=== PATIENT | male | born 1985 | race Caucasian/White ===

== ENCOUNTER 2023-06-30 08:27 | Outpatient (CLI) | payer OTHER, SELFPAY ==
--- NOTE | 2023-07-14 10:07 | WPDHOMESLEEP ---
Sleep Study - Home Unattended Date of Study: 06/30/23 Ordering Provider: Omer Mcgarry APRN Interpreting Provider: Radha Yadav MD Home Sleep Study Type: Watch PAT Height: 1.83 m Weight: 86.183 kg Body Mass Index: 25.7 Neck Circumference (inches): 15 [place]: 7 Reason for Sleep Study Snoring, fatigue Sleep History Kevin Lieberman is a 37-year-old man with hypertension and seasonal allergies. He has loud snoring, restless sleep with tossing and turning, and fatigue. There is a family history of sleep diagnoses, his father took sleep medication and both uncles use CPAP. He rarely awakens from sleep feeling short of breath. He rarely wakes at night with heartburn, belching or coughing.??He constantly snores, constantly snores loudly enough that others complain. He frequently has trouble sleeping when he has a cold. He rarely wakes up gasping for breath during the night. He frequently has breathing problems at night. He frequently sweats excessively at night. He rarely notices his heart pounding or beating irregularly during the night. He rarely falls asleep during the day. He rarely falls asleep involuntarily, never falls asleep while driving. He never experiences loss of muscle tone with strong emotion. 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 He never feels paralyzed on waking or falling asleep. He occasionally experiences vivid dreams upon waking or falling asleep. He never feels afraid of going to sleep. He rarely has nightmares. He rarely recalls his dreams. He occasionally has thoughts racing through his mind. He rarely feels sad or depressed. He occasionally feels anxiety. He occasionally notices parts of his body jerk. He frequently kicks during the night. He frequently feels crawling or aching feelings in his legs. He occasionally feels leg pain at night. He rarely has morning jaw pain, rarely grinds his teeth at night. He rarely feels bothered by pain during the day, rarely awakened by pain during the night. He occasionally wakes up feeling stiff in the morning, and he occasionally wakes feeling sore or achy. He occasionally awakens with pain in his neck, spine, or joints. Normal bedtime is9:30 p.m, falling asleep within 10 to 30 minutes, waking 3-5 times at night. When he wakes at night, he changes positions and gets a drink of water. His mouth is always parched at night from snoring. 5:30 a.m. on weekdays. On weekends, he goes to bed at 11:00 p.m., wakes at 7:00 a.m. He typically gets between 6 to 7 and a half hours of sleep at night. He does not take naps in the day, and a short nap is not refreshing. He is drowsy for 2 hours after waking. Habits:??Tobacco: former smoker Caffeine: 1-3 cans of soda daily. 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 Prior to using the d
[2023-07-14 10:30] VITALS: BMI 25.7
== END 2023-07-07 07:30 | disposition home or self-care (01) ==
PROVIDERS: Visit Provider Nurse Practitioner Family
DX: G47.30 Sleep apnea, unspecified (principal); I10 Essential (primary) hypertension; R06.83 Snoring; G25.81 Restless legs syndrome
CPT/HCPCS: 95800

== ENCOUNTER 2023-07-26 08:47 | Outpatient (CLI) | payer OTHER, SELFPAY ==
--- NOTE | 2023-08-17 17:40 | WPDSLEEPSTUD ---
Sleep Study Date of Study: 07/26/23 Ordering Provider: Omer Mcgarry APRN Interpreting Physician: Prachi Yates DO Sleep Study Type: Polysomnogram Height: 1.83 m Weight: 83.915 kg Body Mass Index: 25.0 Neck Circumference (inches): 16 [place]: 7 Reason for Sleep Study The patient had a WatchPAT home sleep test on 06/30/2023 that showed an overall AHI of 1.4 but a RDI of 34. Sleep History Kevin Lieberman is a 37-year-old man with hypertension and seasonal allergies. He has loud snoring, restless sleep with tossing and turning, and fatigue. There is a family history of sleep diagnoses, his father took sleep medication and both uncles use CPAP. He rarely awakens from sleep feeling short of breath. He rarely wakes at night with heartburn, belching or coughing.??He constantly snores, constantly snores loudly enough that others complain. He frequently has trouble sleeping when he has a cold. He rarely wakes up gasping for breath during the night. He frequently has breathing problems at night. He frequently sweats excessively at night. He rarely notices his heart pounding or beating irregularly during the night. He rarely falls asleep during the day. He rarely falls asleep involuntarily, never falls asleep while driving. He never experiences loss of muscle tone with strong emotion. 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 He never feels paralyzed on waking or falling asleep. He occasionally experiences vivid dreams upon waking or falling asleep. He never feels afraid of going to sleep. He rarely has nightmares. He rarely recalls his dreams. He occasionally has thoughts racing through his mind. He rarely feels sad or depressed. He occasionally feels anxiety. He occasionally notices parts of his body jerk. He frequently kicks during the night. He frequently feels crawling or aching feelings in his legs. He occasionally feels leg pain at night. He rarely has morning jaw pain, rarely grinds his teeth at night. He rarely feels bothered by pain during the day, rarely awakened by pain during the night. He occasionally wakes up feeling stiff in the morning, and he occasionally wakes feeling sore or achy. He occasionally awakens with pain in his neck, spine, or joints. Normal bedtime is 9:30 p.m, falling asleep within 10 to 30 minutes, waking 3-5 times at night. When he wakes at night, he changes positions and gets a drink of water. His mouth is always parched at night from snoring. 5:30 a.m. on weekdays. On weekends, he goes to bed at 11:00 p.m., wakes at 7:00 a.m. He typically gets between 6 to 7 and a half hours of sleep at night. He does not take naps in the day, and a short nap is not refreshing. He is drowsy for 2 hours after waking. Habits:??Tobacco: former smoker Caffeine: 1-3 cans of soda daily. 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
[2023-08-17 17:47] VITALS: BMI 25.0
== END 2023-07-27 05:29 | disposition home or self-care (01) ==
PROVIDERS: Visit Provider Nurse Practitioner Family
DX: G47.30 Sleep apnea, unspecified (principal); R06.83 Snoring; I10 Essential (primary) hypertension; G25.81 Restless legs syndrome
CPT/HCPCS: 95810

== ENCOUNTER 2023-10-06 09:29 | Outpatient (CLI) | payer OTHER, SELFPAY ==
--- NOTE | 2023-10-07 20:36 | WPDHOMESLEEP ---
Sleep Study - Home Unattended Date of Study: 10/06/23 Ordering Provider: Omer Mcgarry APRN Interpreting Provider: Radha Yadav MD Home Sleep Study Type: Watch PAT Height: 1.83 m Weight: 88.451 kg Body Mass Index: 26.4 Neck Circumference (inches): 15.75 [place]: 8 Reason for Sleep Study Poor quality sleep, loud snoring, fatigue, frequent crawling and aching feelings in his legs * 06/30/2023, home sleep test with WatchPat; AHI 1.4 with high RDI 34, tomy saturation 73% * 07/26/2023, PSG ; AHI 2.2 with desaturation down to 91%, fragmented sleep Sleep History Kevin Lieberman is a 37-year-old man with hypertension and seasonal allergies. He had a home sleep test with an elevated RDI 34 and desaturation to 74%. This was followed by an in-lab study with an AHI 2.4 and tomy of 92% saturation. He is having a home sleep test with a sedative as he still has a high index of suspicion for obsructive sleep apnea. He has loud snoring, restless sleep with tossing and turning, and fatigue. There is a family history of sleep diagnoses, his father took sleep medication and both uncles use CPAP. He rarely awakens from sleep feeling short of breath. He rarely wakes at night with heartburn, belching or coughing.??He constantly snores, constantly snores loudly enough that others complain. He frequently has trouble sleeping when he has a cold. He rarely wakes up gasping for breath during the night. He frequently has breathing problems at night. He frequently sweats excessively at night. He rarely notices his heart pounding or beating irregularly during the night. He rarely falls asleep during the day. He rarely falls asleep involuntarily, never falls asleep while driving. He never experiences loss of muscle tone with strong emotion. 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 He never feels paralyzed on waking or falling asleep. He occasionally experiences vivid dreams upon waking or falling asleep. He never feels afraid of going to sleep. He rarely has nightmares. He rarely recalls his dreams. He occasionally has thoughts racing through his mind. He rarely feels sad or depressed. He occasionally feels anxiety. He occasionally notices parts of his body jerk. He frequently kicks during the night. He frequently feels crawling or aching feelings in his legs. He occasionally feels leg pain at night. He rarely has morning jaw pain, rarely grinds his teeth at night. He rarely feels bothered by pain during the day, rarely awakened by pain during the night. He occasionally wakes up feeling stiff in the morning, and he occasionally wakes feeling sore or achy. He occasionally awakens with pain in his neck, spine, or joints. Normal bedtime is 9:30 p.m, falling asleep within 10 to 30 minutes, waking 3-5 times at night. When he wakes at night, he changes positions and gets a drink of water. His mouth is always parched at night from snoring. 5:30 a.m. on weekdays. On weekends, he goes to bed at 11:00 p.m., wakes at 7:00 a.m. He typically gets between 6 to 7 and a half hours of sleep at night. He does not take naps in the day, and a short nap is not refreshing. He is drowsy for 2 hours after waking. Habits:??Tobacco: former smoker Caffeine: 1-3 cans of soda daily. 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
[2023-10-07 20:39] VITALS: BMI 26.4
== END 2023-10-07 13:46 | disposition home or self-care (01) ==
LOC: ANHCSM 09:55
PROVIDERS: Visit Provider Nurse Practitioner Family
DX: G47.33 Obstructive sleep apnea (adult) (pediatric) (principal); G25.81 Restless legs syndrome; R06.83 Snoring; I10 Essential (primary) hypertension
CPT/HCPCS: 95800